=== PATIENT | male | born 2005 | race Caucasian/White ===

== ENCOUNTER 2024-08-09 02:03 | Day surgery (SDC) | payer OTHER ==
[~2024-08-09] VITALS: Ht 167.6 cm; Wt 89.9 kg
[2024-08-09 03:38] LABS: BASO % 0.1 % (0.0-1.0); EOS % 0.1 % (0.0-3.0); HEMATOCRIT 44.8 % (42.0-52.0); HEMOGLOBIN 15.7 g/dl (13.5-17.5); LYMPH # 1.1 10^3/uL (1.5-5.0); LYMPH % 7.6 % (24.0-44.0); MEAN CORPUSCULAR VOLUME 82.8 fl (80.0-96.0); MONO # 0.8 10^3/uL (0.0-0.8); MONO % 5.6 % (2.0-8.0); NEUTROPHILS # 12.1 10^3/uL (1.5-8.5); NEUTROPHILS % 86.3 % (36.0-66.0); PLATELET COUNT, AUTOMATED 257 10^3/uL (150-450); RED BLOOD COUNT 5.41 10^6/uL (4.30-6.10)
[2024-08-09 04:01] LABS: LIPASE 30 U/L (12-53)
[2024-08-09 04:03] LABS: ALBUMIN 4.5 G/DL (3.2-5.2); ALKALINE PHOSPHATASE 119 U/L (40-129); ALT/SGPT 31 U/L (7.0-40); AST/SGOT 15 U/L (<34); BILIRUBIN,DIRECT 0.3 MG/DL (<0.4); BILIRUBIN,TOTAL 0.6 MG/DL (0.3-1.2); BLOOD UREA NITROGEN 20 MG/DL (9-23); CALCIUM LEVEL 9.7 MG/DL (8.5-10.1); CARBON DIOXIDE LEVEL 26 MMOL/L (20-31); CHLORIDE LEVEL 107 MMOL/L (98-107); CREATININE FOR GFR 0.82 MG/DL (0.70-1.30); GLOMERULAR FILTRATION RATE > 60.0 (>60); GLUCOSE, FASTING 114 MG/DL (60-100); SODIUM LEVEL 137 MMOL/L (136-145); TOTAL PROTEIN 7.5 G/DL (5.7-8.2)
[2024-08-09] MEDS ORDERED: ONDANSETRON 4MG 2ML VIAL As Ordered ONE (04:24)
[2024-08-09] MEDS: KETOROLAC 30 MG/ML 1ML VIAL IV ONE (04:34)
[2024-08-09] MEDS: ONDANSETRON 4MG 2ML VIAL IV ONE (04:34)
[2024-08-09] MEDS ORDERED: ISOVUE-370 76% 100ML VIAL As Ordered ONE (05:14)
[2024-08-09] MEDS ORDERED: HOME MED LIST COMPLETE! XX SCH (08:05)
[2024-08-09] MEDS: PIPERACILLIN/TAZOBACTAM SOD 3.375 GM in DEXTROSE 5% (D5W) ADV/MINI-BAG 50 ML IV ONE (09:13)
[2024-08-09] MEDS ORDERED: KETOROLAC 30 MG/ML 1ML VIAL IV PRN (09:55)
[2024-08-09] MEDS: LIDOCAINE 1% SDV 30ML VIAL As Ordered ONE (12:50)
[2024-08-09] MEDS ORDERED: fentaNYL 100 MCG/2 ML INJECTION IV PRN (13:00)
[2024-08-09] MEDS ORDERED: oxyCODONE 5MG TAB PO PRN (13:00)
[2024-08-09] MEDS ORDERED: ONDANSETRON 4MG 2ML VIAL IV PRN (13:00)
[2024-08-09] MEDS ORDERED: HYDROMORPHONE HCL 0.5 MG/ 0.5 ML SYRINGE IV PRN (13:00)
[2024-08-09] MEDS ORDERED: LIDOCAINE 2% 100MG/5ML SDV (FOR ANES.) As Ordered ONE (13:10)
[2024-08-09] MEDS ORDERED: LIDOCAINE 2% JELLY 6ML SYRINGE As Ordered ONE (13:10)
[2024-08-09] MEDS ORDERED: ACETAMINOPHEN 1000MG 100ML IV BAG As Ordered ONE (13:10)
[2024-08-09] MEDS ORDERED: ROCURONIUM BROMIDE 50MG/5ML VIAL As Ordered ONE (13:10)
[2024-08-09] MEDS ORDERED: KETOROLAC 60MG 2ML VIAL As Ordered ONE (13:10)
[2024-08-09] MEDS ORDERED: SUCCINYLCHOLINE 100MG/5ML SYRINGE As Ordered ONE (13:10)
[2024-08-09] MEDS ORDERED: SUGAMMADEX SODIUM 500 MG/5 ML VIAL (BRIDION) As Ordered ONE (13:10)
[2024-08-09] MEDS ORDERED: MIDAZOLAM INJ 2MG/2ML VIAL As Ordered ONE (13:10)
[2024-08-09] MEDS ORDERED: propofoL 200 MG/20 ML VIAL As Ordered ONE (13:10)
[2024-08-09] MEDS ORDERED: fentaNYL 250 MCG/5 ML INJECTION As Ordered ONE (13:10)
[2024-08-09] MEDS ORDERED: OXYC1TAB23 PO (13:25)
[2024-08-09] MEDS ORDERED: AUGM500T34 PO (13:26)
[2024-08-09 14:23] VITALS: BP 128/60; TEMP 97.1; O2SAT 97
[2024-08-09] MEDS ORDERED: PIPERACILLIN/TAZOBACTAM SOD 3.375 GM in DEXTROSE 5% (D5W) ADV/MINI-BAG 50 ML IV SCH (15:00)
== END 2024-08-09 14:39 | disposition home or self-care (01) ==
LOC: M ED 02:03 → M SDC 10:06
PROVIDERS: ATTEND Surgery
DX: K35.80 Unspecified acute appendicitis (principal); R11.2 Nausea with vomiting, unspecified
CPT/HCPCS: 44970; 74177; 80048; 80076; 81001; 83690; 85025; 88302; 93041; 96374; 96375; 99285; J0131; J0330; J0665; J1100; J1885; J2250; J2405; J2543; J3010; Q9967